=== PATIENT | male | born 1990 | race Caucasian/White ===

== ENCOUNTER → 2020-08-07 | Outpatient (REF) | payer SELFPAY, OTHER | LOC: M LAB REF 17:56 | PROVIDERS: ATTEND Physician Assistant Medical | DX: Z11.59 Encounter for screening for other viral diseases (principal) ==

== ENCOUNTER → 2022-10-23 | Outpatient (REF) | payer OTHER ==
[2022-10-23 16:25] LABS: HEPATITIS C VIRUS ABY INDEX < 0.0 INDEX (<0.8); HIV 1&2 SCREEN CENTAUR NEGATIVE (NEGATIVE)
== END ==
LOC: M LAB REF 12:12
PROVIDERS: ATTEND Internal Medicine
DX: Z13.89 Encounter for screening for other disorder (principal); Z11.4 Encounter for screening for human immunodeficiency virus [HIV]